=== PATIENT | female | born 1980 | race Hispanic/Latino ===

== ENCOUNTER 2023-02-06 17:25 | Emergency (ER) | payer SELFPAY ==
--- OUTSIDE RECORDS SUMMARY | 2023-02-06 17:29 | XMS REPORT | Continuity of Care Document ---
:1980 Author Organization [facility] t Address [address] [place] [address] [place] [id number] Care Team Providers Name Role Phone Jesica BHAT, Kim De Paz Primary Care Physician [phone] Naina Seaman Attending Clinician Delia Castanon Attending Clinician Delia Castanon Attending Clinician Naina Seaman Attending Clinician Kim Mooney Attending Clinician Patrice San Attending Clinician Problems Condition Condition Condition Status Onset Resolution Last Treating Co mments Source Name Details Category Date Date Treatment Clinician Date FEVER, FEVER, Diagnosis Active 2016-10-17 Ny moria GENERAL GENERAL 10-14 12:58:00 l PAIN PAIN 00:00: Frandy Active 00 10/14/2016 [facility] Diverticul Diverticu Problem Resolve 2020 Memoria ar disease lar d 22:01:06 l (disorder) disease Asuncion nn (disorder) Resolved Problem 2020 [facility] Outpatient [facility] [place]^^ ^^^^^^^2.1 [id number],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) (disorder) Resolved 06/20/2005 Problem 2020 [facility] Out[facility] [place]^^ ^^^^^^^2.1 [id number] Patient Patient Problem Resolve 1996-062020-12-05 2020 Memoria currently currently d 07-12 22:01:06 22:01:06 l 00:00: Tucker n (finding) (finding) 00 Resolved 05/12/1997 Problem 2020 [facility] Outpatient Imaging [place]^^ ^^^^^^^2.1 [id number] History of Past Illness Condition Condition Condition Status Onset Resolution Last Treating Co mments Source Name Details Category Date Date Treatment Clinician Date Encounter Encounter Problem 2019-09-09 2019-09-09 Memoria for for 09-05 00:04:27 00:04:27 l screening screening 14:50: Herm adriana for human for human 00 papillomav papillomav irus (HPV) irus (HPV) 09/06/2019 09/09/2019 [facility] Encounter Encounter Problem 2019-09-09 2019-09-09 Memoria for for 09-05 00:04:27 00:04:27 l screening screening 14:50: Herm adriana for for 00 malignant malignant neoplasm neoplasm of cervix of cervix 09/06/2019 0 [facility] Encounter Encounter Problem 2019-09-09 2019-09-09 Memoria for for 09-05 00:04:27 00:04:27 l gynecologi gynecologi 14:35: He rmann bello bello 00 examinatio examinatio n n (general) (general) (routine) (routine) without without abnormal abnormal findings findings 09/06/2019 09/09/2019 [facility] Encounter Problem 2019-02-01 2019-02-01 Memoria for Encounter 07-16 11:50:09 11:50:09 l screening for 04:04: Frandy mammogram screening 56 for mammogram malignant for neoplasm malignant of breast neoplasm of breast 07/16/2018 02/01/2019 [facility] Outpatient Imaging [place]^^ ^^^^^^^2.1 [id number] Diverticul Diverticu Problem 2016-2016-10-17 2016-10-17 Memoria itis of litis of 10-14 04:02:47 04:02:47 l intestine, intestine, 05:00: He rmann part part 00 unspecifie unspecifie d, without d, without perforatio perforatio n or n or abscess abscess without without bleeding bleeding 10/14/2016 10/17/2016 [facility] Allergies, Adverse Reactions, Alerts Allergy Allergy Status Severity Reaction(s) Onset Inactive Treating Comm ents Source Name Type Date Date Clinician No Known No Known Active Memori a Medicati Medicati l on on Frandy Allergie Allergie s s Family History Family Member Diagnosis Comments Start Date Stop Date Source [facility] mother Diverticulosis Method [facility] Social [facility] Social Habit Start Date Stop Date Quantity Comments Source Gender identity [facility] Sexual orientation Method [facility] Social History 2019-09-06 2019-09-06 [facility] ermann 14:27:05 14:27:05 Tobacco use and 2018-02-01 2018-02-01 Smokeless [facility] exposure 00:00:00 00:00:00 tobacco non-user Hospital Alcohol intake 2018-02-01 2018-02-01 Current drinker [facility] 00:00:00 00:00:00 of alcohol Hospital (finding) History of Social 2018-02-01 2018-02-[address] function 00:00:00 00:00:00 Hospital Alcohol Comment 2017-01-06 2017-01-06 socially [facility] 00:00:00 00:00:00 Hospital Sex Assigned At [birth year] [facility] 00:00:00 00:00:00 Hospital Smoking Status Start Date Stop Date Source [facility] Medications Ordered Filled Start Stop Current Ordering Indication Dosage Frequency Signature Comments Components Source Medication Medication Date Date Medication? Clinician (SIG) Name Name Nitrofurant Yes 100 mg = 1 Memoria oin 100 MG 4-13 cap, PO, l Oral 21:01: BID, X 7 Frandy Capsule 00 day, # 14 [Macrobid] cap, 0 Refill(s), Pharmacy: [facility] [id number], 162.56, cm, 09/06/19 9:24:00 CDT, Height, 71.364, kg, 09/06/19 9:24:00 CDT, Weight Metronidazo Yes 500 mg = 1 Memoria le 500 MG 3-26 tab, PO, l Oral Tablet 16:27: BID, do Her mendez [Flagyl] not drink alcohol or have sexual intercours e during treatment. , X 7 day, # 14 tab, 0 Refill(s), Pharmacy: [facility] [id number] Claritin Yes Daily, 0 Memor ia 3-19 Refill(s) l 14:27: Harold 00 cholecalcif Yes 1000U QD Take 1,000 Methodi ovidio, 8-[address] vitamin D3, 14:01: mouth Hospi ta (VITAMIN 02 daily. l D3) 1,000 unit capsule Acetaminoph No Notes: Rob anderson en 325 MG / 4-28 (Same as: l Hydrocodone 01:54: [place] Asuncion nn Bitartrate 00 325/5) Do 5 MG Oral not exceed Tablet 4gm/day of [[place] acetaminop 5/325] hen. Flagyl No Notes: Memoria 4-28 (Same as: l 01:53: Flagyl) Harold 00 Take with food/ avoid alcohol Cipro No Notes: May Memori a 4-28 interfere l 01:53: w/enteral Frandy 00 feedings - Take 1 hr before or 2 hrs after antacids, dairy pdt & minerals. On empty stomach. Metronidazo Yes 500 mg = 1 Memoria le 500 MG 4-28 tab, PO, l Oral Tablet 01:39: Q8H, X 10 H ermann [Flagyl] day, # 30 tab, 0 Refill(s) Ciprofloxac Yes 500 mg = 1 Memoria in 500 MG 4-28 tab, PO, l Oral Tablet 01:39: Q12H, X 10 Harold [Cipro] day, # 20 tab, 0 Refill(s) Ondansetron Yes 4 mg = 1 Me moria 4 MG 4-28 tab, PO, l Disintegrat 01:39: BID, PRN He rmann ing Tablet 00 Nausea and [Zofran] Vomiting, Dissolve tab under tongue, X 5 day, # 10 tab, 0 Refill(s) tramadol Yes 1 - 2 Memoria hydrochlori 4-28 tabs, PO, l de 50 MG 01:39: Q4-6H, PRN Her mendez Oral Tablet 00 Pain Score [Ultram] 6-10, X 4 day, # 30 tab, 0 Refill(s) Morphine No 4 mg, Memoria 10-14 Route: l 23:53: IVP, ONCE, Harold 00 Dosing Weight 73.636, kg, Priority: STAT, Start date: 10/14/16 18:53:00 CDT, Stop date: 10/14/16 18:53:00 CDT Morphine No Notes: Memoria 10-14 (Same l 23:17: as:MORPhin Harold 00 e Sulfate) Sodium No 1,000 mL, Memori a Chloride 10-14 2,000 l 0.154 22:29: ml/hr, Frandy MEQ/ML 00 Infuse Injectable Over: 30 Solution minutes, Route: IV, 1,000, Drug form: INJ, ONCE, Priority: STAT, Dosing Weight 73.636 kg, Start date: 10/14/16 17:29:00 CDT, Duration: 1 doses or times, Stop date: 10/14/16 17:29:00 CDT Saline No Notes: Memoria Flush 0.9% 10-14 Same as: l 22:29: BD Frandy 00 Posiflush Sterile Morphine No Notes: Memoria 10-14 (Same l 22:29: as:MORPhin Frandy 00 e Sulfate) Vital Signs Vital Name Observation Time Observation Value Comments Source Systolic (mm Hg) 2019-09-06 14:24:00 Rob Wise Diastolic (mm Hg) 2019-09-06 14:24:00 [facility] sherley Harold Heart Rate 2019-09-06 14:24:00 [facility] Height 2019-09-06 14:24:00 162.56 cm [facility] Weight 2019-09-06 14:24:00 [facility] BMI Calculated 2019-09-06 14:24:00 Claire gore Frandy Height 2019-01-23 20:55:00 162.56 cm [facility] Harold Weight 2019-01-23 20:55:00 [facility] Frandy BMI Calculated 2019-01-23 20:55:00 Memori al Frandy Heart Rate 2019-01-23 20:55:00 [facility] Frandy Systolic (mm Hg) 2019-01-23 20:55:00 Rob rial Frandy Diastolic (mm Hg) 2019-01-23 20:55:00 Mem orial Frandy Systolic (mm Hg) 2016-10-15 02:00:00 Rob rial Harold Diastolic (mm Hg) 2016-10-15 02:00:00 Mem orial Frandy Temperature Oral (F) 2016-10-15 02:00:00 98.9 F [facility] Harold Respitory Rate 2016-10-15 02:00:00 Memori al Harold Heart Rate 2016-10-15 02:00:00 [facility] Harold Temperature Oral (F) 2016-10-14 23:00:00 99.8 F [facility] Frandy Respitory Rate 2016-10-14 23:00:00 Memori al Harold Heart Rate 2016-10-14 23:00:00 [facility] Harold Systolic (mm Hg) 2016-10-14 23:00:00 Rob rial Frandy Diastolic (mm Hg) 2016-10-14 23:00:00 Mem orial Harold Weight 2016-10-14 22:27:00 [facility] Frandy Height 2016-10-14 22:27:00 162.56 cm Memorial Frandy BMI Calculated 2016-10-14 22:27:00 Memori al Harold Systolic (mm Hg) 2016-10-14 22:27:00 Rob rial Frandy Diastolic (mm Hg) 2016-10-14 22:27:00 Mem orial Harold Respitory Rate 2016-10-14 22:27:00 Memori al Frandy Heart Rate 2016-10-14 22:27:00 [facility] Frandy Procedures Procedure Date / Time Performed Performing Clinician [facility] e Pap smear and HPV 2019-09-06 05:00:00 [facility] H ermann cotesting<sup>1, 2, 3</sup> Pap smear and HPV 2019-01-23 05:00:00 [facility] H ermann cotesting<sup>1, 2</sup> Pap smear and HPV 2017-12-29 05:00:00 [facility] H ermann cotesting<sup>1</sup> LEEP<sup>4</sup> 2006-02-18 00:00:00 [facility] Babak patterson Breast augmentation [facility] mendez Tubal ligation Hussain Wise Plan of Care Planned Activity Planned Date Details Comments Source Future Scheduled 2023-01-19 COVID-19 VACCINE [facility] Test 14:12:48 (#1) [code = COVID-19 VACCINE (#1)] Future Scheduled 2023-01-19 Screening for [facility] Test 14:12:48 malignant neoplasm of cervix (procedure) [code = 456780662] Future Scheduled 2023-01-19 BREAST CANCER [facility] Test 14:12:48 SCREENING [code = BREAST CANCER SCREENING] Future Scheduled 2023-01-19 INFLUENZA VACCINE Method [facility] Test 14:12:48 [code = INFLUENZA VACCINE] Encounters Start End Encounter Admission Attending Care Care Encounter Source Date/Time Date/Time Type Type Clinicians Facility Department ID 2021-03-22 2021-03-22 Outpatient PRIV PRIV [id number] [facility] 00:00:00 00:00:00 [id number] Medica l 2021-03-22 2021-03-22 Outpatient PRIV PRIV [id number] [facility] 00:00:00 00:00:00 [id number] Medica l 2020-12-03 2020-12-03 Ambulatory nullFlavo [facility] [id number] Memoria 18:00:00 18:00:00 Pre-Reg r Specialists 04 l For Women Tucker n 2020-12-03 2020-12-03 Outpatient [facility] [id number] Memoria 13:00:00 13:00:00 04 l Frandy 2020-12-03 2020-12-03 Outpatient Maria Dolores-Poornima MG [facility] [id number] 13:00:00 13:00:00 y, Naina 04 Nia 2020-12-01 2020-12-03 Phone nullFlavo [facility] [id number] Memoria 21:14:08 04:59:59 Message r Specialists 01 l For Women Tucker n 2020-12-01 2020-12-02 Outpatient [facility] [id number] 16:14:08 23:59:59 01 2020-09-30 2020-10-02 Phone nullFlavo [facility] [id number] Memoria 20:17:56 04:59:59 Message r Specialists 00 l For Women Tucker n 2020-09-30 2020-10-01 Outpatient [facility] [id number] 15:17:56 23:59:59 00 2020-09-30 2020-09-30 Ambulatory nullFlavo [facility] [id number] Memoria 20:30:00 20:30:00 Pre-Reg r Specialists 03 l For Women Tucker n 2020-09-30 2020-09-30 Outpatient [facility] [id number] Memoria 15:30:00 15:30:00 03 avelina Wise 2020-09-30 2020-09-30 Outpatient Lg, [facility] [id number] 15:30:00 15:30:00 Delia Haley 2019-09-10 2019-09-11 Between nullFlavo [facility] [id number] Memoria 15:36:48 15:36:48 Visit r Specialists 04 l For Women Tucker n 2019-09-10 2019-09-11 Outpatient [facility] [id number] 10:36:48 10:36:48 04 2019-09-06 2019-09-07 Outpatient nullFlavo [facility] [id number] Memoria 14:00:00 04:59:59 r Specialists 02 l For Women Tucker n 2019-09-06 2019-09-06 Outpatient Lg, MG [facility] [id number] 09:00:00 23:59:59 Delia Martin 2019-09-06 2019-09-06 Outpatient [facility] [id number] Memoria 09:00:00 09:00:00 02 avelina Frandy 2019-03-07 2019-03-07 Ambulatory nullFlavo [facility] [id number] Memoria 21:10:00 21:10:00 Pre-Reg r Specialists 01 l For Women Tucker n 2019-03-07 2019-03-07 Outpatient [facility] [id number] Memoria 16:10:00 16:10:00 01 avelina Wise 2019-03-07 2019-03-07 Outpatient Maria Dolores-Poornima [facility] [id number] 16:10:00 16:10:00 Naina hook 2019-01-23 2019-01-24 Outpatient nullFlavo [facility] [id number] Memoria 20:30:00 04:59:59 r Specialists 00 l For Women Tucker n 2019-01-23 2019-01-23 Outpatient Lg, MG [facility] [id number] 15:30:00 23:59:59 Delia M 00 2019-01-23 2019-01-23 Outpatient [facility] [id number] Memoria 15:30:00 15:30:00 00 l Harold 2018-07-14 2018-07-15 Outpt Diag nullFlavo [facility] [id number] Memoria 15:48:00 05:59:00 Services r Outpatient 01 l Imaging Frandy [place] 2018-07-14 2018-07-14 Outpatient Jesica 128 [facility] [id number] 09:48:00 23:59:00 Kim Thorpe 2018-07-14 2018-07-14 Outpatient Jesica 128 [facility] [id number] 09:48:00 23:59:00 Kim Thorpe 2016-10-14 2016-10-15 Emergency nullFlavo [facility] [id number] Memoria 22:19:00 02:16:00 r Harold The 00 l [facility] 2016-10-14 2016-10-14 Outpatient Jaswinder [facility] [id number] 17:19:00 21:16:00 Patirce Adler 00 2014-07-02 2014-07-03 Outpt Diag nullFlavo [facility] [id number] Memoria 21:03:00 05:59:00 Services r Outpatient 00 l Imaging - Tucker [facility] 2014-07-02 2014-07-02 Outpatient Jesica, [id number] 15:03:00 23:59:00 Kim Thorpe [id number] 01 Results Test Description Test Time Test Comments Results Result Sour e Comments SCR MAMM 2021-04-14 BILATERAL ASHLEY 10:48:39 CAD DIGITAL Name: , W/AUGMENTATION Jair : 1980 Sex: F - SCR MAMM BILATERAL ASHLEY CAD DIGITAL W/AUGMENTATIONBILATERAL DIGITAL SCREENING MAMMOGRAM 3D/2D WITH CAD WITH AUGMENTATION: 04/02/2021LINICAL: Asymptomatic. Digital breast tomosynthesis was performed in addition to routine CC and MLO views. Current mammographic images were evaluated by either a Yasound M-Vu or a FitWithMe ImageChecker CAD (computer aided detection system). No prior exams were available for comparison. The tissue of both breasts is heterogeneously dense. This may lower the sensitivity of mammography. Bilateral retropectoral saline breast implants are intact. No suspicious mass, architectural distortion, malignant type calcification, or lymph node abnormality detected. IMPRESSION: BENIGNThere is no mammographic evidence of malignancy. Resume annual screening mammography in one year. Karolyn arboleda/:04/14/2021 10:48:39 Risk Officer: Dee DUNLAP, [facility]-GWletter sent: BIRADS 1-2 Normal Mammogram BI-RADS: 2 Benign HEMATOLOGY 2016-10-14 22:51:00 Test Item Value Reference Range Interpretation Comme nts MCHC (test code = MCHC) 33.6 32.0-36.0 [facility] [id number] 22:51:00 Test Item Value Reference Range Interpretation Comments Hgb (test code = Hgb) 12.8 12.0-16.0 [facility] [id number] 22:51:00 Test Item Value Reference Range Interpretation Comments RBC (test code = RBC) 4.22 4.20-5.40 [facility] [id number] 22:51:00 Test Item Value Reference Range Interpretation Comments WBC (test code = WBC) 11.9 3.7-10.4 [facility] [id number] 22:51:00 Test Item Value Reference Range Interpretation Comments RDW (test code = RDW) 13.6 11.5-14.5 [facility] [id number] 22:51:00 Test Item Value Reference Range Interpretation Comments Platelet (test code = Platelet) 238 133-450 [facility] [id number] 22:51:00 Test Item Value Reference Range Interpretation Comments MPV (test code = MPV) 8.9 7.4-10.4 [facility] AND [id number] 22:51:00 Test Item Value Reference Range Interpretation Comments UA Sq Epi (test code = UA Sq Epi) None Seen [facility] AND [id number] 22:51:00 Test Item Value Reference Range Interpretation Comments UA Urobilinogen (test code = UA <=1.0 mg/dL 0.1-1.0 Urobilinogen) [facility] AND [id number] 22:51:00 Test Item Value Reference Range Interpretation Comments UA Ketones (test code = UA Trace mg/dL Ketones) [facility] AND [id number] 22:51:00 Test Item Value Reference Range Interpretation Comments UA RBC (test code = no gt See_Comment [Automa noel message] The UA RBC) system which ge nerated this result transmit noel reference range : <=2. The reference range was not used to interpr et this result as yosvany l/abnormal. [facility] AND [id number] 22:51:00 Test Item Value Reference Range Interpretation Comments UA Leuk Est (test Negative (10/14/16 5:51 code = UA Leuk Est) PM) [facility] AND [id number] 22:51:00 Test Item Value Reference Range Interpretation Comments UA Blood (test code = Negative (10/14/16 5:51 UA Blood) PM) [facility] AND [id number] 22:51:00 Test Item Value Reference Range Interpretation Comments UA Nitrite (test code Negative (10/14/16 5:51 = UA Nitrite) PM) [facility] AND [id number] 22:51:00 Test Item Value Reference Range Interpretation Comments UA Protein (test code = UA Negative mg/dL Protein) [facility] AND [id number] 22:51:00 Test Item Value Reference Range Interpretation Comments UA Bili (test code = Negative *NA*(10/14/16 UA Bili) 5:51 PM) [facility] AND [id number] 22:51:00 Test Item Value Reference Range Interpretation Comments UA Glucose (test code = UA Negative mg/dL Glucose) [facility] AND [id number] 22:51:00 Test Item Value Reference Range Interpretation Comments UA Color (test code = Light Yellow UA Color) *NA*(10/14/16 5:51 PM) [facility] AND [id number] 22:51:00 Test Item Value Reference Range Interpretation Comments UA Turbidity (test code = Clear (10/14/16 5:51 UA Turbidity) PM) [facility] AND [id number] 22:51:00 Test Item Value Reference Range Interpretation Comments UA pH (test code = UA pH) 6.0 5.0-8.0 [facility] AND [id number] 22:51:00 Test Item Value Reference Range Interpretation Comments UA Spec Grav (test code = UA Spec Grav) 1.000 [facility] [employer] [id number] 22:51:00 Test Item Value Reference Range Interpretation Comments Bili Indirect (test 0.6 See_Comment [Automa noel message] The code = Bili Indirect) system which generated this result tra nsmitted reference range : <=1.0. The reference r christina was not used to int erpret this result as normal/abnormal . [facility] [employer] [id number] 22:51:00 Test Item Value Reference Range Interpretation Comments A/G Ratio (test code = A/G Ratio) 1.0 0.7-1.6 [facility] [employer] [id number] 22:51:00 Test Item Value Reference Range Interpretation Comments Globulin (test code = Globulin) 4.1 2.7-4.2 [facility] [employer] [id number] 22:51:00 Test Item Value Reference Range Interpretation Comments Albumin Lvl (test code = Albumin Lvl) 4.1 3.5-5.0 [facility] [employer] [id number] 22:51:00 Test Item Value Reference Range Interpretation Comments Total Protein (test code = Total 8.2 6.4-8.4 Protein) [facility]2017-04-27 22:51:00 Test Item Value Reference Range Interpretation Comments Bili Total (test code = Bili Total) 0.8 0.2-1.3 [facility]2017-04-27 22:51:00 Test Item Value Reference Range Interpretation Comments Bili Direct (test code 0.2 See_Comment [Aut omated message] The = Bili Direct) system which generated this result tra nsmitted reference range : <=0.3. The reference r christina was not used to int erpret this result as yosvany l/abnormal. [facility]2017-04-27 22:51:00 Test Item Value Reference Range Interpretation Comments Alk Phos (test code = Alk Phos) 119 39-136 [facility]2017-04-27 22:51:00 Test Item Value Reference Range Interpretation Comments AST (test code = AST) 103 See_Comment [Auto mated message] The system which ge nerated this result transmit noel reference range : <=37. The reference range was not used to interpr et this result as yosvany l/abnormal. [facility]2017-04-27 22:51:00 Test Item Value Reference Range Interpretation Comments ALT (test code = ALT) 64 See_Comment [Auto mated message] The system which ge nerated this result transmit noel reference range : <=65. The reference range was not used to interpr et this result as yosvany l/abnormal. [facility]2017-04-27 22:51:00 Test Item Value Reference Range Interpretation Comments Lipase Lvl (test code = Lipase Lvl) 249 73-393 [facility]2017-04-27 22:51:00 Test Item Value Reference Range Interpretation Comments eGFR (test code = eGFR) [address] [place] [id number] 22:51:00 Test Item Value Reference Range Interpretation Comments Glucose Lvl (test code = Glucose Lvl) 92 70-99 [facility]2017-04-27 22:51:00 Test Item Value Reference Range Interpretation Comments BUN (test code = BUN) 8 7-22 [facility]2017-04-27 22:51:00 Test Item Value Reference Range Interpretation Comments Chloride Lvl (test code = Chloride Lvl) 105 95-109 [facility]2017-04-27 22:51:00 Test Item Value Reference Range Interpretation Comments Calcium Lvl (test code = Calcium Lvl) 9.2 8.5-10.5 [facility]2017-04-27 22:51:00 Test Item Value Reference Range Interpretation Comments CO2 (test code = CO2) 23 24-32 [facility]2017-04-27 22:51:00 Test Item Value Reference Range Interpretation Comments Creatinine Lvl (test code = Creatinine 0.65 0.50-1.40 Lvl) [facility]2017-04-27 22:51:00 Test Item Value Reference Range Interpretation Comments Potassium Lvl (test code = Potassium 3.6 3.5-5.1 Lvl) [facility]2017-04-27 22:51:00 Test Item Value Reference Range Interpretation Comments Sodium Lvl (test code = Sodium Lvl) 138 135-145 [facility]2017-04-27 22:51:00 Test Item Value Reference Range Interpretation Comments AGAP (test code = AGAP) 13.6 10.0-20.0 [id number] 22:51:00 Test Item Value Reference Range Interpretation Comments S Preg (test code = S Negative *NA*(10/14/16 Preg) 5:51 PM) [facility] [id number] 22:51:00 Test Item Value Reference Range Interpretation Comments Segs-Bands # (test code = Segs-Bands #) 10.2 1.5-8.1 [facility] [id number] 22:51:00 Test Item Value Reference Range Interpretation Comments Basophils (test code = 0.4 See_Comment [Aut omated message] The Basophils) system which ge nerated this result tra nsmitted reference range : <=1.0. The reference r christina was not used to int erpret this result as normal/abnormal . [facility] [id number] 22:51:00 Test Item Value Reference Range Interpretation Comments Eosinophils (test code = 0.3 See_Comment [A utomated message] The Eosinophils) system which ge nerated this result tra nsmitted reference range : <=4.0. The reference r christina was not used to int erpret this result as normal/abnormal . [facility] [id number] 22:51:00 Test Item Value Reference Range Interpretation Comments Monocytes # (test code 0.6 See_Comment [Aut omated message] The = Monocytes #) system which generated this result tra nsmitted reference range : <=0.8. The reference r christina was not used to int erpret this result as normal/abnormal . [facility] [id number] 22:51:00 Test Item Value Reference Range Interpretation Comments Lymphocytes # (test code = Lymphocytes 1.0 1.0-5.5 #) [facility] [id number] 22:51:00 Test Item Value Reference Range Interpretation Comments Monocytes (test code = Monocytes) 5.4 2.0-12.0 [facility] [id number] 22:51:00 Test Item Value Reference Range Interpretation Comments Lymphocytes (test code = Lymphocytes) 8.4 20.0-40.0 [facility] [id number] 22:51:00 Test Item Value Reference Range Interpretation Comments Segs (test code = Segs) 85.5 45.0-75.0 [facility] [id number] 22:51:00 Test Item Value Reference Range Interpretation Comments Hct (test code = Hct) 38.2 36.0-48.0 [facility] [id number] 22:51:00 Test Item Value Reference Range Interpretation Comments MCV (test code = MCV) 90.5 80.0-98.0 [facility] [id number] 22:51:00 Test Item Value Reference Range Interpretation Comments MCH (test code = MCH) 30.4 pg 27.0-31.0 Hussain Harold Notes Date/Time Note Provider Source 2018-07-14 09:55:00-00:00 Claire Goodwin BILATERAL DIGITAL SCREENING MAMMOGRAM 3D/2D WITH CAD: 07/14/2018 CLINICAL: Screening Mammogram/Z12.31. Current study was evaluated with a Emergency Medical Tech d Detection (CAD) system. COMPARISON:No prior exams were available for [facility] samantha. TECHNIQUE: Digital Breast To mosynthesis was performed and utilized for Interpretation. Current study was also evaluated with a Computer Aided Detection (CAD) system. FINDINGS: There are scattered fibroglandular densities in both breasts. Bilateral breast implants are intact. No significant masses, calci fications, or other findings are seen in either breast. IMPRESSION: BENIGN RECOMMENDATION:There is no m ammographic evidence of malignancy. A 3 year screening mammogram is recommended.(07/14/2021) This exam was interpreted at [id number] at [facility] [place]. Professional services are pr ovided by the [facility]. Percy Hernandez M.D. as/penrad:07/14/2018 15:16:39 Risk Officer(s): Morris Méndez, RTVeronica, Ny deisy Wise [facility] letter sent: BI-RADS 1/2 Mammogram BI-RADS: 2 Benign 2016-10-14 19:05:05-00:00 Clinical Indication: Abdomin al pain, acute - LLQ pain. [facility] Comparison: None. TECHNIQUE: Helical imaging w as performed from diaphragm through the symphysis with multiplanar coronal and sagittal reformations obtained. CT imaging was performed with exposure control parameters to reduce radiation dose. IV CONTRAST: 100 cc Omnipaque. GI CONTRAST: NONE DLP: 516.42 mGy-cm FINDINGS: LOWER CHEST: The lung bases are clear. LIVER: Unremarkable. GALLBLADDER: Unremarkable. INTRAHEPATIC BILE DUCT AND EXTRAHEPATIC BILE RAINER T: Unremarkable. PANCREAS: Unremarkable. SPLEEN: Unremarkable. ADRENALS: Unremarkable. KIDNEYS AND URETERS: Unremarkable. STOMACH: Unremarkable. BOWEL: The non-contrast opac ified small bowel loops in the abdomen and pelvis appear unremarkable. The noncontrast opacified colonic loops in the abdomen and pelvis show mild descending and moderate pro ximal to mid sigmoid colonic diverticulosis. There is moderate mid sigmoid colonic wall thickening with adjacent fat stranding and inflammatory changes. These findings are consistent with acute divertic ulitis. There is no free air or abscess. The lack of orally administered contrast material limits assessment. APPENDIX: Seen in the right pelvis region and ap pears normal. PERITONEUM AND RETROPERITONE UM: No ascites or free air. No other fluid collection. There is no aortic aneurysm or dissection. LYMPH NODES: Unremarkable. PELVIS: No pelvic mass or ad enopathy. The uterus and adnexal regions appear unremarkable. BLADDER: Unremarkable. OSSEOUS STRUCTURES: No acute abnormality seen. SOFT TISSUES: Unremarkable. IMPRESSION: 1. Mild descending and moder ate proximal to mid sigmoid colonic diverticulosis. Moderate mid sigmoid colonic wall thickening with adjacent fat stranding and inflammatory changes. These findings are cons istent with acute diverticulitis. No free air or abscess. SL: [id number]
[2023-02-06 17:45] LABS: Absolute Lymphocytes (CBC) 1.9 K/uL (0.7-4.9); Hematocrit 37.1 % (36.0-45.0); Lymphocytes % 28.6 % (15.3-44.8); MCV 87.9 fL (80-100); MPV 8.6 fL (7.6-11.3); Platelets 313 thou/uL (152-406); RBC Red Blood Cell Count 4.22 M/uL (3.86-4.86)
[2023-02-06] MEDS ORDERED: NA CHLORIDE 0.9% 1,000 ML ONE (17:47)
[2023-02-06 17:50] LABS: Protime INR 0.91
[2023-02-06 17:59] LABS: Potassium 3.5 mEq/L (3.5-5.1)
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
[2023-02-06] MEDS ORDERED: MORPHINE 4 MG/ML SYR ONE (19:06)
[2023-02-06] MEDS ORDERED: ONDANSETRON 4 MG/2 ML VIAL ONE (19:06)
[2023-02-06 19:10] LABS: Specific Gravity 1.021 (1.005-1.030); Specific Gravity 1.022 (1.005-1.030); Urine Bilirubin NEGATIVE (Negative); Urine Blood Negative (Negative); Urine Clarity Clear (Clear); Urine Color Colorless (Yellow); Urine Glucose NEGATIVE (Negative); Urine Protein NEGATIVE (Negative); Urine Urobilinogen Normal (Normal)
[2023-02-06] MEDS ORDERED: LIDOCAINE 1% 20 ML MDV ONE (19:15)
[2023-02-06] MEDS ORDERED: BUPIVACAINE 0.5% PF 10 ML VIAL ONE (19:15)
[2023-02-06 19:33] LABS: Barbiturates NEGATIVE (NEGATIVE); Benzodiazepines NEGATIVE (NEGATIVE); Cocaine POSITIVE (NEGATIVE); METHAMPHETAM POSITIVE (NEGATIVE); Methadone NEGATIVE (NEGATIVE); Opiates NEGATIVE (NEGATIVE); Phencyclidine NEGATIVE (NEGATIVE); THC Cannibis NEGATIVE (NEGATIVE)
[2023-02-06 20:40] VITALS: TEMP 98; O2SAT 99
[2023-02-06 20:42] VITALS: BP 127/91
== END 2023-02-06 20:03 | disposition home or self-care (01) ==
LOC: ER 17:25
DX: S01.81XA Laceration without foreign body of other part of head, initial encounter (principal); S06.0X0A Concussion without loss of consciousness, initial encounter; S20.219A Contusion of unspecified front wall of thorax, initial encounter; V89.9XXA Person injured in unspecified vehicle accident, initial encounter
CPT/HCPCS: 36415; 70450; 71260; 72125; 74177; 80048; 80307; 81003; 81025; 82077; 85025; 85610; 86850; 86900; 86901; 96361; 96374; 96375; 99284; J2001; J2405; J7030; Q9967